=== PATIENT | male | born 1960 | race Caucasian/White ===

== ENCOUNTER 2020-06-19 18:16 | Inpatient (IN) | payer MEDICARE, MEDICAID ==
[~2020-06-19] VITALS: Ht 157.5 cm; Wt 85.7 kg
[~2020-06-19 18:16] MED LIST: AMBIEN10 MG PO; ASPIR 8181 MG ORAL; ATIVAN2 MG/1 ML IJ; DILAUDID 44 MG/1 ML IJ; DILAUDID8 MG PO; HUMALOG100 UNIT/1 SQ; KLONOPIN1 MG ORAL; LAMICTAL ODT100 MG PO; LEVEMIR100 UNIT/1 SQ; LEVEMIR100 UNITS/ *; LEVEMIR100 UNITS/ SUBQ; LOPID600 MG PO; LORAZEPAM2 MG PO; LYRICA100 MG PO; NEURONTIN400 MG ORAL; SEROQUEL400 MG PO; ZOCOR20 MG PO
[2020-06-19] MEDS ORDERED: Aspirin Baby 81mg ORAL ONE (18:30)
--- NOTE | 2020-06-19 18:30 | NUR ---
ED Nurse Note: Pt SHARRON from [facility] for chest pain since this morning 0800. CP on L chest radiating to L shoulder. Pt is alert and orientedx4, ambulatory. Pt is alert and ox4, ambulatory. Set up on monitor. Pt has been seen by LUI.
[2020-06-19 18:33] VITALS: BP 137/75
[2020-06-19 18:56] LABS: BASOPHILS % (AUTO) 1.1 % (0.0-2.0); EOSINOPHILS % (AUTO) 2.7 % (0.0-3.0); HEMATOCRIT 33.9 % (42.0-52.0); HEMOGLOBIN 11.9 G/DL (14.2-18.0); LYMPHOCYTES % (AUTO) 32.1 % (20.0-45.0); MEAN CORPUSCULAR VOLUME 94 FL (80-99); MONOCYTES % (AUTO) 10.5 % (1.0-10.0); NEUTROPHILS % (AUTO) 53.7 % (45.0-75.0); PLATELET COUNT 241 K/UL (150-450); RED BLOOD COUNT 3.62 M/UL (4.70-6.10); RED CELL DISTRIBUTION WIDTH 11.2 % (11.6-14.8); WHITE BLOOD COUNT 5.8 K/UL (4.8-10.8)
[2020-06-19 19:06] LABS: ANION GAP 10 mmol/L (5-15); BLOOD UREA NITROGEN 22 mg/dL (7-18); CARBON DIOXIDE 25 MMOL/L (21-32); CHLORIDE 104 MMOL/L (98-107); CREATININE 0.9 MG/DL (0.55-1.30); POTASSIUM 3.9 MMOL/L (3.5-5.1); SODIUM 139 MMOL/L (136-145)
--- NOTE | 2020-06-19 19:10 | NUR ---
ED Nurse Note: Report received from DAVID Chavez. Patient is awake and alert, resting in bed. 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 No acute distress at this time. Patient is aware of hospital admission. Will continue to monitor.
[2020-06-19 19:11] LABS: ALANINE AMINOTRANSFERASE 24 U/L (12-78); ALBUMIN 3.8 G/DL (3.4-5.0); ALBUMIN/GLOBULIN RATIO 1.2 (1.0-2.7); ALKALINE PHOSPHATASE 60 U/L (46-116); ASPARTATE AMINO TRANSFERASE 22 U/L (15-37); BILIRUBIN,TOTAL 0.3 MG/DL (0.2-1.0)
--- NOTE | 2020-06-19 20:26 | Emergency Room Report ---
History of Present Illness General Chief Complaint: Chest Pain Source: Patient Present Illness HPI 60-year-old male with history of CAD and hypertension here with left-sided chest pain and bilateral lower extremity swelling. Patient says that the left-sided chest pain is been ongoing for the past 24 hours and is worse on exertion. He says that he has been experiencing lower extremity swelling intermittently. Pain is pressure-like in nature, located solely in the left side of his chest, does not otherwise radiate. No fevers, chills, rotations, shortness of breath, cough, back pain, abdominal pain, nausea, vomiting, diarrhea, dysuria. 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 COVID-19 Screening: Negative COVID-19 COVID-19 Testing Source: [facility] unknown time Nursing Documentation-PMH Past Medical History: No History, Except For Hx Cardiac Problems: Yes - CAD Hx Hypertension: Yes Hx Pacemaker: No Hx Asthma: No Hx COPD: Yes Hx Diabetes: Yes Hx Cancer: No Hx Gastrointestinal Problems: No Hx Dialysis: No Hx Neurological Problems: No Hx Cerebrovascular Accident: No Hx Seizures: No Hx Peripheral Neuropathy: Yes Hx Neurologic Surgery: No Review of Systems All Other Systems: negative except mentioned in HPI Physical Exam Vital Signs Date Time Temp Pulse Resp B/P (MAP) Pulse Ox O2 Delivery O2 Flow Rate FiO2 06/19/20 18:06 98.4 70 20 141/72 (95) 97 Room Air 06/19/20 18:33 99 Sp02 EP Interpretation: reviewed, normal General Appearance: no apparent distress, alert, GCS 15, non-toxic Head: normocephalic, atraumatic Eyes: bilateral eye normal inspection, bilateral eye PERRL ENT: hearing grossly normal, normal pharynx, no angioedema, normal voice Neck: full range of motion, supple/symm/no masses Respiratory: chest non-tender, lungs clear, normal breath sounds, speaking full sentences Cardiovascular #1: regular rate, rhythm, no edema Cardiovascular #2: 2+ carotid (R), 2+ carotid (L), 2+ radial (R), 2+ radial (L), 2+ dorsalis pedis (R), 2+ dorsalis pedis (L) Gastrointestinal: normal bowel sounds, non tender, soft, non-distended, no guarding, no rebound Rectal: deferred Genitourinary: normal inspection, no CVA tenderness Musculoskeletal: back normal, normal range of motion, gait/station normal, non- tender Neurologic: alert, motor strength/tone normal, oriented x3, sensory intact, res ponsive, speech normal Psychiatric: judgement/insight normal, memory normal, mood/affect normal, no suicidal/homicidal ideation Lymphatic: no adenopathy Medical Decision Making Diagnostic Impression: Primary Impression: Chest pain Additional Impressions: ACS (acute coronary syndrome) HTN (hypertension) ER Course EKG: NSR, no ischemia, intervals WNL. No ectopy Rhythm strip: patient monitored for arrhythmias - no malignant dysrhythmias, runs of PVCs, nor pauses noted Chest x-ray: No infiltrate/effusion. Mediastinum within normal limits. Indication chest pain Laboratory Tests Test 06/19/20 18:25 White Blood Count 5.8 K/UL (4.8-10.8) Red Blood Count 3.62 M/UL (4.70-6.10) L Hemoglobin 11.9 G/DL (14.2-18.0) L Hematocrit 33.9 % (42.0-52.0) L Mean Corpuscular Volume 94 FL (80-99) Mean Corpuscular Hemoglobin 32.7 PG (27.0-31.0) H Mean Corpuscular Hemoglobin Concent 34.9 G/DL (32.0-36.0) Red Cell Distribution Width 11.2 % (11.6-14.8) L Platelet Count 241 K/UL (150-450) Mean Platelet Volume 8.2 FL (6.5-10.1) Neutrophils (%) (Auto) 53.7 % (45.0-75.0) Lymphocytes (%) (Auto) 32.1 % (20.0-45.0) Monocytes (%) (Auto) 10.5 % (1.0-10.0) H Eosinophils (%) (Auto) 2.7 % (0.0-3.0) Basophils (%) (Auto) 1.1 % (0.0-2.0) Sodium Level 139 MMOL/L (136-145) Potassium Level 3.9 MMOL/L (3.5-5.1) Chloride Level 104 MMOL/L (98-107) Carbon Dioxide Level 25 MMOL/L (21-32) Anion Gap 10 mmol/L (5-15) Blood Urea Nitrogen 22 mg/dL (7-18) H Creatinine 0.9 MG/DL (0.55-1.30) Estimated Glomerular Filtration Rate > 60 mL/min (>60) Glucose Level 129 MG/DL (74-106) H Calcium Level 9.0 MG/DL (8.5-10.1) Total Bilirubin 0.3 MG/DL (0.2-1.0) Aspartate Amino Transferase (AST) 22 U/L (15-37) Alanine Aminotransferase (ALT) 24 U/L (12-78) Alkaline Phosphatase 60 U/L (46-116) Troponin I 0.001 ng/mL (0.000-0.056) Total Protein 6.9 G/DL (6.4-8.2) Albumin 3.8 G/DL (3.4-5.0) Globulin 3.1 g/dL Albumin/Globulin Ratio 1.2 (1.0-2.7) 60-year-old male here with left-sided chest pain. Patient had a elevated heart score due to history, age, comorbidities. Was given aspirin on arrival to the emergency department. He was pain-free in the ER. Examination unremarkable, E KG normal, labs normal including a negative troponin. The patient will be admitted to telemetry for further work-up and observation. Last Vital Signs Date Time Temp Pulse Resp B/P (MAP) Pulse Ox O2 Delivery O2 Flow Rate FiO2 06/19/20 18:33 98.4 72 18 137/75 99 Room Air 06/19/20 18:33 99 Referrals: Arthur Cabrera MD (PCP) Jose Francisco Ruffin M.D. Jun 19, 2020 20:26
[2020-06-19] MEDS ORDERED: METOPROLOL TART50 M1 ORAL (20:56)
[2020-06-19] MEDS ORDERED: LISINOPRIL20 MG ORAL (20:56)
[2020-06-19] MEDS ORDERED: ATIVAN2 MG ORAL (20:56)
[2020-06-19] MEDS ORDERED: FLOMAX0.4 MG ORAL (20:56)
[2020-06-19] MEDS ORDERED: CRESTOR10 M2 ORAL (20:56)
[2020-06-19] MEDS ORDERED: ABILIFY10 MG ORAL (20:56)
--- NOTE | 2020-06-19 21:05 | NUR ---
ED Nurse Note: Report given to DAVID Mehta.
--- NOTE | 2020-06-19 21:15 | NUR ---
ED Nurse Note: Patient is stable for transfer to tele unit at this time. Patient is aaox4, breathing is normal at time of ED departure. Sylvia Addendum: 06/20/20 at 0330 by MALENA ED Nurse Note: Patient taken to unit via gurney while connected to cardiac cath technician. IV is patent and intact. Patient took all belongings with him. VSS.
[2020-06-19] MEDS: Nitroglycerin Subl 0.4mg tab SL PRN (23:45)
--- NOTE | 2020-06-20 | NUR ---
NURSE NOTES: Dr. Cabrrea gave admission orders. Noted and carried out.
[2020-06-20] MEDS: HYDROcodone/Acetamin 10/325 tab ORAL PRN ×2 (00:22→13:38)
[2020-06-20] MEDS: Albuterol/Ipratropium 3ml neb HHN SCH ×4 (00:58→19:52)
--- NOTE | 2020-06-20 01:04 | NUR ---
NURSE NOTES: Patient noted with 45 heart rate while asleep. Easily arousable and oriented x4. Heart rate goes up to 55 to 60s when awake. Chest pain also subsided to 2/10.
[2020-06-20] MEDS ORDERED: Zolpidem 5mg tab ORAL PRN (01:30)
--- NOTE | 2020-06-20 02:10 | NUR ---
NURSE NOTES: Report received from DAVID Tidwell in ER. Patient being admitted to [facility] for chest pain. Patient currently sinus more to sinus rhythm. C/o 04/28 chest pain. No SOB. Not tested for COVID because no S/s exhibited per ER nurse. ASA given in ER. Patient has $42 desai on him in his wallet, clothing and shoes, no cell pohone or medical devices. He is ambulatory and alert and oriented x4. Bed is at lowest position locked with side rails up. Call light and bedside table with in reach. Will continue to follow up with Dr. Cabrera for orders. Addendum: 06/20/20 at 0216 by Janine Rosenbaum RN Patient admitted at 11pm
[2020-06-20] MEDS: LORazepam 1mg tab ORAL PRN ×3 (03:04→17:11)
[2020-06-20 04:00] VITALS: BP 118/66
[2020-06-20] MEDS: NovoLOG Insulin Flexpen SUBQ SCH ×4 (06:38→21:00)
--- NOTE | 2020-06-20 07:30 | NUR ---
NURSE NOTES: Pt received from Anya HERNANDEZ. pt in bed alert and talkative. Asking for water. Pt complains of some weakness in left foot. Educated on using call light and to NOT walk to restroom alone. Will bring in camode. Call light within reach. Bed low and locked for safety although he can walk just has slightly unsteady gait. No omplaint of pain at this time.
--- NOTE | 2020-06-20 07:46 | NUR ---
NURSE HAND-OFF REPORT: Important Events on Shift:[Admitted to tele. Patient had SB to SR 47 to 70. SB while asleep but easily arousable. ] Patient Status: [Alert and oriented x4 ] Diet: [1800 Calorie CCHO ADA] Pending Orders: [] Pending Results/Labs:[] Pending MD notification:[Ambien 10mg] Latest Vital Signs: Temperature 97.2 , Pulse 56 , B/P 118 /66 , Respiratory Rate 19 , O2 SAT 97 , Room Air, O2 Flow Rate . Vital Sign Comment: [] EKG Rhythm: Sinus Bradycardia Rhythm change?: N MD Notified?: - MD Response: Latest Del Angel Fall Score: 15 Fall Risk: Low Risk Safety Measures: Call light , Bed Alarm , Side Rails Side Rails x2, Bed position Low and Locked. Fall Precautions: Report given to [DAVID Richardson].
[2020-06-20 08:00] VITALS: BP 128/72
[2020-06-20] MEDS: ARIPiprazole 10mg tab ORAL SCH (08:26)
[2020-06-20] MEDS: Aspirin EC 81mg tab ORAL SCH (08:26)
[2020-06-20] MEDS: Lisinopril 20mg tab ORAL SCH (08:27)
[2020-06-20] MEDS: Tamsulosin 0.4mg cap ORAL SCH (08:27)
[2020-06-20] MEDS: Levemir Flexpen SUBQ SCH ×2 (08:29→21:21)
[2020-06-20] MEDS: Metoprolol Tartrate 50mg tab ORAL SCH ×2 (08:29→21:11)
[2020-06-20] MEDS: Nitroglycerin Subl 0.4mg tab SL PRN ×3 (08:47→09:12)
--- NOTE | 2020-06-20 09:16 | NUR ---
NURSE NOTES: Nitro SL X3 was not affective. Contacted Dr. Garrido and reported this along with vitals. Per Dr. Garrido "I am in the building wait for me to come up""
--- NOTE | 2020-06-20 10:29 | NUR ---
NURSE NOTES: pt reporting severe anxiety and asking for ativan. Chest pain still at " 8 or 9 out of 10." Contacted Dr. Garrido to report this.
[2020-06-20] MEDS ORDERED: Omnipaque 350 100ml vial INJ PRN (10:45)
--- NOTE | 2020-06-20 11:32 | History and Physical ---
History of Present Illness General Date patient seen: Jun 20, 2020 Time patient seen: 11:00 Reason for Hospitalization: Chest Pain Present Illness HPI 60 years wm came from for chest pain ,sob, leg edema and interctable denice feet pain for 2 days. pt also feels unsteidy gait and loosing his balance pain level ob both feet 04/28 has been neurontin ,not helping. pt has mild cough and sob on exertion. Allergies: Coded Allergies: PHENOTHIAZINES (Verified Allergy, Unknown, 02/06/10) COVID-19 Screening Contact w/high risk pt: No Experienced COVID-19 symptoms?: No Medication History Scheduled Aripiprazole* (Abilify*), 10 MG ORAL DAILY, (Reported) Aspirin* (Aspir 81*), 81 MG ORAL DAILY, (Reported) Gabapentin* (Neurontin*), 900 MG ORAL THREE TIMES A DAY, (Reported) Gemfibrozil* (Lopid*), 600 MG PO BID, (Reported) Lamotrigine (Lamictal Odt), 100 MG PO HS, (Reported) Lisinopril (Lisinopril*), 20 MG ORAL DAILY, (Reported) Lorazepam* (Ativan*), 2 MG ORAL THREE TIMES A DAY, (Reported) Metoprolol Tartrate* (Metoprolol Tartrate*), 50 MG ORAL EVERY 12 HOURS, (Reported) Quetiapine Fumarate (Seroquel), 400 MG PO HS, (Reported) Rosuvastatin Calcium* (Crestor*), 10 MG ORAL DAILY, (Reported) Tamsulosin HCl (Flomax), 0.4 MG ORAL DAILY, (Reported) Discontinued Medications Clonazepam* (Klonopin*), 2 MG ORAL Q8H, (Reported) Discontinued Reason: MD discontinued med Hydromorphone Hcl (Dilaudid), 4 MG PO QID, (Reported) Discontinued Reason: MD discontinued med Insulin Detemir (Levemir), 16 UNITS * AM PM, (Reported) Discontinued Reason: MD discontinued med Insulin Lispro (Humalog), UNIT SQ AC+HS, (Reported) Discontinued Reason: MD discontinued med Pregabalin (Lyrica), 100 MG PO HS, (Reported) Discontinued Reason: MD discontinued med Simvastatin (Zocor), 20 MG PO QHS, (Reported) Discontinued Reason: MD discontinued med Zolpidem Tartrate* (Ambien*), 10 MG PO HS, (Reported) Discontinued Reason: MD discontinued med Patient History Healthcare decision maker Resuscitation status Advanced Directive on File Review of Systems Constitutional: Reports: sweats, weakness Respiratory: Reports: cough, wheezing Cardiovascular: Reports: chest pain, PND Gastrointestinal: Reports: no symptoms Genitourinary: Reports: no symptoms Musculoskeletal: Reports: muscle pain, other - denice feet pain Skin: Reports: no symptoms Psychiatric: Reports: anxiety Neurological: Reports: no symptoms Endocrine: Reports: no symptoms All Other Systems: negative except mentioned in HPI Physical Exam General Appearance: alert, obese, alert oriented x3 Lines, tubes and drains: peripheral HEENT: normocephalic, PERRL, EOMI, pharynx normal, carotid(s) normal Neck: normal alignment, supple Respiratory/Chest: inspiratory wheezing, other - chest tighhtness, old surgical scar on lt upper chest Cardiovascular/Chest: regular rhythm Abdomen: non tender, soft, no mass Genitourinary/Rectal: normal genital exam Extremities: normal range of motion, moderate edema - flat foot with dry skin Skin Exam: warm/dry 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, abnormal gait, oriented x 3 Musculoskeletal: normal muscle bulk Last 24 Hour Vital Signs Date Time Temp Pulse Resp B/P (MAP) Pulse Ox O2 Delivery O2 Flow Rate FiO2 06/20/20 10:53 62 18 136/65 97 06/20/20 09:12 128/72 06/20/20 08:57 128/72 06/20/20 08:47 128/72 06/20/20 08:29 75 128/72 06/20/20 08:27 128/72 06/20/20 08:00 80 06/20/20 08:00 99.5 74 18 128/72 (90) 97 06/20/20 07:58 71 18 100 Room Air 21 77 18 98 06/20/20 04:00 97.2 72 19 118/66 (83) 97 06/20/20 04:00 56 06/20/20 03:34 56 19 118/66 97 06/20/20 03:04 60 19 121/73 100 06/20/20 02:20 Room Air 06/20/20 01:00 77 16 100 Room Air 21 75 16 97 06/20/20 00:52 98.4 06/19/20 23:45 157/82 06/19/20 23:30 61 06/19/20 21:15 98.0 82 18 140/80 98 Room Air 99 06/19/20 18:33 98.4 72 18 137/75 99 Room Air 06/19/20 18:33 72 18 Room Air 99 06/19/20 18:06 98.4 70 20 141/72 (95) 97 Room Air Intake and Output 06/19/20 06/20/20 19:00 07:00 Intake Total 0 ml 300 ml Balance 0 ml 300 ml Intake Oral 0 ml 300 ml Laboratory Tests Test 06/19/20 18:25 06/19/20 21:49 06/20/20 05:30 White Blood Count 5.8 K/UL (4.8-10.8) Red Blood Count 3.62 M/UL (4.70-6.10) L Hemoglobin 11.9 G/DL (14.2-18.0) L Hematocrit 33.9 % (42.0-52.0) L Mean Corpuscular Volume 94 FL (80-99) Mean Corpuscular Hemoglobin 32.7 PG (27.0-31.0) H Mean Corpuscular Hemoglobin Concent 34.9 G/DL (32.0-36.0) Red Cell Distribution Width 11.2 % (11.6-14.8) L Platelet Count 241 K/UL (150-450) Mean Platelet Volume 8.2 FL (6.5-10.1) Neutrophils (%) (Auto) 53.7 % (45.0-75.0) Lymphocytes (%) (Auto) 32.1 % (20.0-45.0) Monocytes (%) (Auto) 10.5 % (1.0-10.0) H Eosinophils (%) (Auto) 2.7 % (0.0-3.0) Basophils (%) (Auto) 1.1 % (0.0-2.0) Sodium Level 139 MMOL/L (136-145) Potassium Level 3.9 MMOL/L (3.5-5.1) Chloride Level 104 MMOL/L (98-107) Carbon Dioxide Level 25 MMOL/L (21-32) Anion Gap 10 mmol/L (5-15) Blood Urea Nitrogen 22 mg/dL (7-18) H Creatinine 0.9 MG/DL (0.55-1.30) Estimat Glomerular Filtration Rate > 60 mL/min (>60) Glucose Level 129 MG/DL (74-106) H Calcium Level 9.0 MG/DL (8.5-10.1) Total Bilirubin 0.3 MG/DL (0.2-1.0) Aspartate Amino Transf (AST/SGOT) 22 U/L (15-37) Alanine Aminotransferase (ALT/SGPT) 24 U/L (12-78) Alkaline Phosphatase 60 U/L (46-116) Troponin I 0.001 ng/mL (0.000-0.056) 0.001 ng/mL (0.000-0.056) Total Protein 6.9 G/DL (6.4-8.2) Albumin 3.8 G/DL (3.4-5.0) Globulin 3.1 g/dL Albumin/Globulin Ratio 1.2 (1.0-2.7) POC Whole Blood Glucose Pending Height (Feet): 5 Height (Inches): 2.00 Weight (Pounds): 187 Medications Current Medications Medications (Trade) Dose Ordered Sig/Chris Route PRN Reason Start Time Stop Time Status Last Admin Dose Admin Acetaminophen (Tylenol) 650 mg Q4H PRN ORAL Mild Pain (Pain Scale 1-3) 06/19/20 23:15 07/19/20 23:14 Acetaminophen/ Hydrocodone Bitart ([place] 10/325) 1 tab EVERY 6 HOURS PRN ORAL Pain 06/19/20 23:00 06/26/20 22:59 06/20/20 00:22 Albuterol/ Ipratropium (Albuterol/ Ipratropium) 3 ml Q6HRT HHN 06/20/20 01:00 06/25/20 00:59 06/20/20 07:48 Aripiprazole (Abilify) 10 mg DAILY ORAL 06/20/20 09:00 08/04/20 08:59 06/20/20 08:26 Aspirin (Ecotrin) 81 mg DAILY ORAL 06/20/20 09:00 08/04/20 08:59 06/20/20 08:26 Atorvastatin Calcium (Lipitor) 20 mg BEDTIME ORAL 06/20/20 21:00 09/18/20 20:59 Dextrose (Dextrose 50%) 25 ml Q30M PRN IV Hypoglycemia 06/20/20 00:00 09/18/20 00:00 Dextrose (Dextrose 50%) 50 ml Q30M PRN IV Hypoglycemia 06/20/20 00:00 09/18/20 00:00 Gabapentin (Neurontin) 100 mg THREE TIMES A DAY ORAL 06/20/20 13:00 07/20/20 12:59 Gabapentin (Neurontin) 900 mg THREE TIMES A DAY ORAL 06/20/20 13:00 07/20/20 08:59 Gemfibrozil (Lopid) 600 mg BID ORAL 06/20/20 09:00 07/20/20 08:59 06/20/20 08:26 Insulin Aspart (NovoLOG) Humalog insulin BEFORE MEALS AND HS SUBQ 06/20/20 06:30 09/18/20 06:29 06/20/20 06:38 Insulin Detemir (Levemir) 14 units Q12HR SUBQ 06/20/20 09:00 09/18/20 08:59 06/20/20 08:29 Iohexol (Omnipaque 350 100ml) 100 ml NOW PRN INJ Radiology Procedure 06/20/20 10:45 06/22/20 10:44 Lamotrigine (LaMICtal) 100 mg BEDTIME ORAL 06/20/20 21:00 08/04/20 20:59 Lisinopril (PriniviL) 20 mg DAILY ORAL 06/20/20 09:00 07/20/20 08:59 06/20/20 08:27 Lorazepam (Ativan) 2 mg TID PRN ORAL ANXIETY 06/19/20 23:45 06/26/20 23:44 06/20/20 10:53 Metoprolol Tartrate (Lopressor) 50 mg EVERY 12 HOURS ORAL 06/20/20 09:00 09/18/20 08:59 06/20/20 08:29 Nitroglycerin (Ntg) 0.4 mg EVERY 6 HOURS PRN SL Prn Chest Pain 06/19/20 23:15 07/19/20 23:14 06/20/20 09:12 Pantoprazole (Protonix) 40 mg DAILY ORAL 06/20/20 09:00 07/20/20 08:59 06/20/20 08:27 Quetiapine Fumarate (SEROqueL) 400 mg BEDTIME ORAL 06/20/20 21:00 08/04/20 20:59 Tamsulosin HCl (Flomax) 0.4 mg DAILY ORAL 06/20/20 09:00 07/20/20 08:59 06/20/20 08:27 Zolpidem Tartrate (Ambien) 5 mg HSPRN PRN ORAL Insomnia 06/20/20 01:30 06/27/20 01:29 Assessment/Plan Status Narrative 1 acs 2 chf 3dm neuropathy 4 dm poorly controlled 5 comorbid obesity 6 intercatable pain denice feet 7 unstady gait 8 anxiety 9 depression admit to tele asa, beta bloker, acei , r/o mi cardio consult increased neurontin pt/ot cont 1800 ada diet, insulin, accue check Arthur Cabrera MD Jun 20, 2020 11:32
[2020-06-20] MEDS ORDERED: Isovue-300 100ml vial INJ PRN (11:45)
[2020-06-20 12:00] VITALS: BP 138/66
--- NOTE | 2020-06-20 13:42 | NUR ---
NURSE NOTES: PPt has gabbapenting and is asking for norco for 9/10 chest pain. Per pharmacy these two should be given 2 hours apart. Pt asks to have norco now. I will administer gabba in 2 hours
--- NOTE | 2020-06-20 15:11 | NUR ---
CASE MANAGEMENT: INITIAL REVIEW 60 YO M PRESENTED TO ED FROM [facility] CC: CP PMHx; HTN. COPD. DM. Si:CP R/O ACS VS: T 98.4 HR 70 RR 20 B/P 141/72 SATS 97% ON RA LABS: BUN 22 GLU 129 TROPONIN (-) X3 IS: ASA PO X1 PATIENT ADMITTED TO TELE 06/19/2020 @ 1926 DCP: B&C PLAN OF CARE: CARDIO CONSULT CONCURRENT REVIEW FOR 06/20/2020 SI:CP R/O ACS VS: T 98.2 HR 56 RR 20 B/P 138/66 SATS 98% ON RA LABS: GLU 159 IS:LOPRESSOR PO Q12H LAMICTAL PO QHS LIPITOR PO QHS LOPID PO BID ASA PO QD LISINOPRIL PO QD FLOMAX PO QD PROTONIX PO QD INSULIN ASPART SUBQ AC/HS LEVEMIR SUBQ Q12H TELE PLAN OF CARE: cardio consult increased Neurontin pt/ot cont 1800 ada diet, insulin, accu check
--- NOTE | 2020-06-20 15:24 | NUR ---
CASE MANAGEMENT: NOTE CP R/O ACS. ADMITTED INPT. TROPONIN (-) X3. CARDIO EVAL PENDING. MEETS OBS IN INTERQUAL MADE AWARE
[2020-06-20 16:00] VITALS: BP 124/53
[2020-06-20] MEDS ORDERED: TEMAZEPAM15 MG ORAL (17:05)
[2020-06-20] MEDS ORDERED: QUETIAPINE FUM300 MG ORAL (17:05)
[2020-06-20] MEDS ORDERED: ARIPIPRAZOLE OD10 MG PO (17:05)
--- NOTE | 2020-06-20 17:37 | Diagnostic Imaging Report ---
Indication: Headache and dizziness, history of chest pain Technique: Spiral acquisitions obtained through the brain pre- and post-IV contrast administration. Angled axial and coronal 5 x 5 mm slices reconstructed. Total dose length product 2144 mGycm. CTDIvol(s) 53 and 53 mGy. Dose reduction achieved using automated exposure control Comparison: 04/24/2011 noncontrast study Findings: No acute intracranial hemorrhage or edema, mass effect, nor midline shift. There is mild age-related enlargement of the ventricles and extra axial CSF spaces. Normal willett-white differentiation. Visualized orbits and sinuses are unremarkable. Mastoids are clear. Calvarium is intact. No significant change. Postcontrast images demonstrate no unusual contrast enhancement Impression: Negative The CT scanner at [facility] is accredited by the [employer] and the scans are performed using protocols designed to limit radiation exposure to as low as reasonably achievable to attain images of sufficient resolution adequate for diagnostic evaluation.
--- NOTE | 2020-06-20 18:27 | Diagnostic Imaging Report ---
Indication: Reason For Exam: CP Technique: One view of the chest Comparison: 05/27/2020 Findings: Lungs and pleural spaces are clear. Heart size is upper limits normal. No significant change Impression: No acute process
--- NOTE | 2020-06-20 19:10 | NUR ---
NURSE HAND-OFF REPORT: Important Events on Shift: Pt became anxious,threatened to leave AMA. Chest pain that did not resolve with Nitro SL x3. CT of head done. Per pharmacy give 6pm gabbapentin at 8 because 13:00 was given late. Patient Status: Diet: Pending Orders: Pending Results/Labs: Pending MD notification: Latest Vital Signs: Temperature 99.1 , Pulse 73 , B/P 124 /53 , Respiratory Rate 17 , O2 SAT 98 , Room Air, O2 Flow Rate . Vital Sign Comment: EKG Rhythm: Sinus Bradycardia Rhythm change?: N MD Notified?: - MD Response: Latest Del Angel Fall Score: 25 Fall Risk: Medium Risk Safety Measures: Call light Within Reach, Bed Alarm Zone 2, Side Rails Side Rails x2, Bed position Low and Locked. Fall Precautions: Patient Fall Education Report given to .
--- NOTE | 2020-06-20 19:25 | NUR ---
NURSE NOTES: Report given by DAVID Richardson. Patient awake alert and oriented x4. No SOB or acute distress. Call light and bedside table within reach. Bed at lowest position and locked with side rails up. Will continue with plan of care.
--- NOTE | 2020-06-20 19:56 | Cardiology Progress Note ---
Assessment/Plan Assessment/Plan The patient is seen and examined, full consult note is dictated. Objective Last 24 Hour Vital Signs Date Time Temp Pulse Resp B/P (MAP) Pulse Ox O2 Delivery O2 Flow Rate FiO2 06/20/20 19:53 68 17 100 Room Air 21 65 17 98 06/20/20 17:41 73 17 124/53 98 06/20/20 17:11 69 18 124/53 97 06/20/20 16:00 51 06/20/20 16:00 99.1 69 18 124/53 (76) 97 06/20/20 14:08 98.2 06/20/20 14:02 68 18 100 Room Air 21 66 18 98 06/20/20 12:00 98.2 56 20 138/66 (90) 98 06/20/20 12:00 48 06/20/20 11:23 58 18 136/65 97 06/20/20 10:53 62 18 136/65 97 06/20/20 09:12 128/72 06/20/20 09:00 Room Air 06/20/20 08:57 128/72 06/20/20 08:47 128/72 06/20/20 08:29 75 128/72 06/20/20 08:27 128/72 06/20/20 08:00 80 06/20/20 08:00 99.5 74 18 128/72 (90) 97 06/20/20 07:58 71 18 100 Room Air 21 77 18 98 06/20/20 04:00 97.2 72 19 118/66 (83) 97 06/20/20 04:00 56 06/20/20 03:34 56 19 118/66 97 06/20/20 03:04 60 19 121/73 100 06/20/20 02:20 Room Air 06/20/20 01:00 77 16 100 Room Air 21 75 16 97 06/20/20 00:52 98.4 06/19/20 23:45 157/82 06/19/20 23:30 61 06/19/20 21:15 98.0 82 18 140/80 98 Room Air 99 Intake and Output 06/19/20 06/20/20 19:00 07:00 Intake Total 0 ml 300 ml Balance 0 ml 300 ml Intake Oral 0 ml 300 ml Laboratory Tests Test 06/19/20 21:49 06/20/20 05:30 06/20/20 06:26 06/20/20 13:25 POC Whole Blood Glucose Pending 159 MG/DL (74-106) H Troponin I 0.001 ng/mL (0.000-0.056) 0.000 ng/mL (0.000-0.056) Remigio Garrido MD Jun 20, 2020 19:56
[2020-06-20 20:00] VITALS: BP 122/62
[2020-06-20] MEDS: Atorvastatin 20mg tab ORAL SCH (21:07)
[2020-06-20] MEDS: QUEtiapine 200mg tab ORAL SCH (21:11)
--- NOTE | 2020-06-20 23:30 | Consultation ---
DATE OF CONSULTATION: 06/20/2020 CARDIOLOGY CONSULTATION CONSULTING PHYSICIAN: Remigio Garrido MD. REFERRING PHYSICIAN: Arthur Cabrera MD. REASON FOR CONSULTATION: Management of chest pain. HISTORY OF PRESENT ILLNESS: Patient is a very unfortunate 60-year-old gentleman who presented to the hospital with left-sided chest pain and bilateral lower extremity edema. Chest pain is described as pressure like that has been more noticeable with exertion and been going on for the past 24 hours. The pain is not radiating, not alleviating with any modalities, and no exacerbation with movement or deep breath. The patient did not have any fever or chills or shortness of breath at the time of arrival to the hospital. Blood pressure was 141/72 mmHg and heart rate was 70. In the emergency department, the patient had blood tests, which showed troponin I level negative x2. Also brain natriuretic peptide was within normal limits. A 12-lead electrocardiogram showed sinus bradycardia rate of [address] and T-wave abnormalities. Chest x-ray showed no acute cardiopulmonary disease with normal cardiac silhouette. The patient has had multiple hospitalizations to [facility] [place] and has complete workup of CAD in the past including nuclear stress test. At the time of my physical examination and history taking, the patient did not have any chest pain. He was concerned about the CT of head. According to the nurse, the patient has been seeking narcotics. PAST MEDICAL HISTORY: Hypertension, COPD, diabetes mellitus, neuropathy. ALLERGIES: Phenothiazine. SOCIAL HISTORY: Continues to smoke about 10 cigarettes per day. No alcohol or illicit drug use. FAMILY HISTORY: No premature coronary artery disease in first-degree relatives. REVIEW OF SYSTEMS: HEENT: Denies any headache, diplopia, or blurred vision. CONSTITUTIONAL: Denies any fever, chills, night sweats, or weight loss. CARDIOVASCULAR: Chest pain as mentioned above. Denies any shortness of breath, denies any PND, orthopnea. Positive for leg swelling. Denies any syncope or palpitation. PULMONARY: Denies any cough, hemoptysis, or wheezing. GASTROINTESTINAL: Denies any nausea, vomiting, diarrhea, constipation, abdominal pain, or GI bleed. GENITOURINARY: Denies any hematuria, dysuria, or incontinence. NEUROLOGIC: Denies any motor dysfunction, sensory deficit, or altered speech. LIST OF MEDICATIONS: Seroquel 400 mg 1 tablet p.o. daily, insulin lispro, insulin detemir, gemfibrozil 600 mg twice a day, Lamictal 100 mg daily, Abilify 10 mg p.o. daily, clonazepam 2 mg q.8h, hydromorphone 4 mg 4 times a day, simvastatin 20 mg p.o. at bedtime, Lyrica 100 mg at bedtime, zolpidem 10 mg p.o. at bedtime, temazepam 15 mg at bedtime, aripiprazole 10 mg at bedtime, Seroquel 600 mg at bedtime, lisinopril 20 mg daily, lorazepam 2 mg 3 times a day, tamsulosin 0.4 mg daily, Crestor 5 mg p.o. daily, metoprolol 50 mg q.12h., gabapentin 300 mg 3 times a day, and aspirin 81 mg daily. PHYSICAL EXAMINATION: VITAL SIGNS: Blood pressure was 141/72, respirations 20, pulse of 70, temperature 98.4 degrees Fahrenheit, O2 saturation 97% on room air. GENERAL: Patient is a very pleasant 60-year-old gentleman, in no apparent respiratory distress. Alert and oriented x4. HEENT: Atraumatic and normocephalic. Anicteric. Pupils are equal, round, and reactive to light and accommodation. Extraocular movements intact. NECK: JVP less than 5 cm. No carotid bruit. Carotid upstroke is 2+ bilaterally. CARDIOVASCULAR: Normal S1, S2. Regular rate and rhythm. No murmurs, gallops, or rubs. PMI is at fourth intercostal space in the midclavicular line. LUNGS: Clear to auscultation bilaterally. ABDOMEN: Soft, nontender, nondistended. No hepatosplenomegaly. Positive bowel sounds. EXTREMITIES: No evidence of edema, clubbing, or cyanosis. LABORATORY FINDINGS: WBC 5.8, hemoglobin of 11.9, hematocrit of 33.9%, platelet count 241. Sodium 139, potassium 3.9, chloride 104, bicarbonate 25, BUN 22, creatinine 0.9, calcium is 9.0, glucose is 129. Troponin I x3 negative. Chest x-ray, no acute cardiopulmonary disease. ASSESSMENT AND PLAN: Patient is a very unfortunate 60-year-old gentleman seen in Cardiology consultation. 1. Most likely noncardiac chest pain given the factors of pain being constant, no evidence of ischemia on the EKG. Acute myocardial infarction is ruled out. The patient has had extensive ischemic workup at [facility] [place] in the past few months. At this time, no further cardiovascular intervention is required. Continue the patient on aspirin and statin as well as beta-blockers. 2D echocardiography, however, will be done to assess LV systolic and diastolic function. 2. Extensive psychiatric disorder. 3. Diabetes mellitus. 4. Hypertension. We will continue the patient on metoprolol and lisinopril. I would like to thank Dr. Cabrera for the courtesy of this consultation. Remigio Garrido M.D. DR: PRICILLA JOB#: [id number] CC:
[2020-06-21] VITALS: BP 125/63
[2020-06-21] MEDS: Albuterol/Ipratropium 3ml neb HHN SCH ×4 (01:00→19:48)
[2020-06-21 04:00] VITALS: BP 122/67
[2020-06-21] MEDS: NovoLOG Insulin Flexpen SUBQ SCH ×4 (06:23→21:22)
[2020-06-21] MEDS: HYDROcodone/Acetamin 10/325 tab ORAL PRN ×2 (06:23→13:33)
[2020-06-21 08:00] VITALS: BP 156/71
--- NOTE | 2020-06-21 08:07 | NUR ---
NURSE HAND-OFF REPORT: Important Events on Shift:[] Patient Status: [] Diet: [] Pending Orders: [] Pending Results/Labs:[] Pending MD notification:[] Latest Vital Signs: Temperature 97.8 , Pulse 53 , B/P 122 /67 , Respiratory Rate 19 , O2 SAT 98 , Room Air, O2 Flow Rate . Vital Sign Comment: [] EKG Rhythm: Sinus Bradycardia Rhythm change?: N MD Notified?: - MD Response: Latest Del Angel Fall Score: 25 Fall Risk: Medium Risk Safety Measures: Call light Within Reach, Bed Alarm Zone 2, Side Rails Side Rails x2, Bed position Low and Locked. Fall Precautions: Patient Fall Education Report given to [Pham, RN].
--- NOTE | 2020-06-21 08:08 | NUR ---
NURSE NOTES: Received patient awake, ambulating in the room. No SOB or acute distress. IV line intact. Bed locked in low position. Call light within reach. Will continue plan of care.
[2020-06-21] MEDS: LORazepam 1mg tab ORAL PRN ×2 (08:18→16:39)
[2020-06-21] MEDS: Aspirin EC 81mg tab ORAL SCH (09:00)
[2020-06-21] MEDS: ARIPiprazole 10mg tab ORAL SCH (09:00)
[2020-06-21] MEDS: Tamsulosin 0.4mg cap ORAL SCH (09:01)
[2020-06-21] MEDS: Lisinopril 20mg tab ORAL SCH (09:01)
[2020-06-21] MEDS: Metoprolol Tartrate 50mg tab ORAL SCH ×2 (09:01→20:59)
[2020-06-21] MEDS: Levemir Flexpen SUBQ SCH ×2 (09:02→21:21)
[2020-06-21 12:00] VITALS: BP 147/67
[2020-06-21] MEDS ORDERED: Omnipaque 350 100ml vial INJ PRN (13:15)
--- NOTE | 2020-06-21 13:22 | NUR ---
NURSE NOTES: Patient refusing to transfer to [facility], Dr Cabrera aware and seen patient.
--- NOTE | 2020-06-21 13:28 | General Progress Note ---
Subjective Allergies: Coded Allergies: PHENOTHIAZINES (Verified Allergy, Unknown, 02/06/10) Subjective anxious agitated, co chest tightness dizziness Objective Last 24 Hour Vital Signs Date Time Temp Pulse Resp B/P (MAP) Pulse Ox O2 Delivery O2 Flow Rate FiO2 06/21/20 12:00 98.1 67 18 147/67 (93) 95 06/21/20 09:01 53 122/67 06/21/20 09:01 122/67 06/21/20 09:00 Room Air 06/21/20 08:48 88 18 156/71 97 06/21/20 08:18 53 19 122/67 98 06/21/20 08:00 97.9 88 18 156/71 (99) 97 06/21/20 07:06 97.8 06/21/20 04:00 53 06/21/20 04:00 97.8 58 19 122/67 (85) 98 06/21/20 00:00 97.6 70 18 125/63 (83) 97 06/21/20 00:00 56 06/20/20 21:11 61 134/80 06/20/20 21:00 Room Air 06/20/20 20:00 47 06/20/20 20:00 97.5 62 17 122/62 (82) 97 06/20/20 19:53 68 17 100 Room Air 21 65 17 98 06/20/20 17:41 73 17 124/53 98 06/20/20 17:11 69 18 124/53 97 06/20/20 16:00 51 06/20/20 16:00 99.1 69 18 124/53 (76) 97 06/20/20 14:08 98.2 06/20/20 14:02 68 18 100 Room Air 21 66 18 98 Intake and Output 06/20/20 06/21/20 19:00 07:00 Intake Total 600 ml 600 ml Balance 600 ml 600 ml Intake Oral 600 ml 600 ml # Voids 3 Laboratory Tests 06/20/20 21:10: POC Whole Blood Glucose [Pending] 06/21/20 05:02: POC Whole Blood Glucose [Pending] 06/21/20 11:56: POC Whole Blood Glucose [Pending] Height (Feet): 5 Height (Inches): 2.00 Weight (Pounds): 187 General Appearance: agitated, overweight, alert oriented x3 EENT: PERRL/EOMI, normal ENT inspection Neck: supple Cardiovascular: regular rhythm Respiratory/Chest: normal breath sounds Abdomen: non tender, soft Extremities: non-tender Edema: trace edema 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
--- NOTE | 2020-06-21 13:31 | General Progress Note ---
Subjective Allergies: Coded Allergies: PHENOTHIAZINES (Verified Allergy, Unknown, 02/06/10) Subjective anxious agitated, co chest tightness dizziness Objective Last 24 Hour Vital Signs Date Time Temp Pulse Resp B/P (MAP) Pulse Ox O2 Delivery O2 Flow Rate FiO2 06/21/20 12:00 98.1 67 18 147/67 (93) 95 06/21/20 09:01 53 122/67 06/21/20 09:01 122/67 06/21/20 09:00 Room Air 06/21/20 08:48 88 18 156/71 97 06/21/20 08:18 53 19 122/67 98 06/21/20 08:00 97.9 88 18 156/71 (99) 97 06/21/20 07:06 97.8 06/21/20 04:00 53 06/21/20 04:00 97.8 58 19 122/67 (85) 98 06/21/20 00:00 97.6 70 18 125/63 (83) 97 06/21/20 00:00 56 06/20/20 21:11 61 134/80 06/20/20 21:00 Room Air 06/20/20 20:00 47 06/20/20 20:00 97.5 62 17 122/62 (82) 97 06/20/20 19:53 68 17 100 Room Air 21 65 17 98 06/20/20 17:41 73 17 124/53 98 06/20/20 17:11 69 18 124/53 97 06/20/20 16:00 51 06/20/20 16:00 99.1 69 18 124/53 (76) 97 06/20/20 14:08 98.2 06/20/20 14:02 68 18 100 Room Air 21 66 18 98 Intake and Output 06/20/20 06/21/20 19:00 07:00 Intake Total 600 ml 600 ml Balance 600 ml 600 ml Intake Oral 600 ml 600 ml # Voids 3 Laboratory Tests 06/20/20 21:10: POC Whole Blood Glucose [Pending] 06/21/20 05:02: POC Whole Blood Glucose [Pending] 06/21/20 11:56: POC Whole Blood Glucose [Pending] Height (Feet): 5 Height (Inches): 2.00 Weight (Pounds): 187 Assessment/Plan Status: other - anxiety refusing to c psych Assessment/Plan: recurrent chest pain chf dm dizziness dm neuropathy anxiety getting worse add ct of brain r/o cva cont medical tc rpt tropnin cardio on consult Arthur Cabrera MD Jun 21, 2020 13:31
--- NOTE | 2020-06-21 15:36 | NUR ---
PT Note PT sadia completed. Patient has a steady gait; no loss of balance noted. No further physical therapy needed at this time. Addendum: 06/21/20 at 1537 by DEX BECKER PT Amended: Links added.
[2020-06-21 16:00] VITALS: BP 136/56
--- NOTE | 2020-06-21 16:20 | NUR ---
NURSE NOTES: Patient transferred to [facility] [id number], report given to Phong HERNANDEZ. Belongings accounted for. No new skin issues noted. surveillance system monitor removed.
--- NOTE | 2020-06-21 16:23 | NUR ---
NURSE NOTES: Pham RN brought patient by bed in stable condition. Alert and oriented x4. No complain of pain or distress at this time. IV dressing intact and dry. Belonging checked with Pham RN. Bed lowest position. Call light within reach. Will continue to monitor.
--- NOTE | 2020-06-21 19:10 | NUR ---
NURSE NOTES: contacted RT to administer nebulizer treatment due 1900. RT came up and stated that they are still waiting on covid results. Once results are out RT will administer nebulizer treatment.
--- NOTE | 2020-06-21 19:24 | NUR ---
NURSE HAND-OFF: Important Events on Shift: Transfer from Tele Patient Status: Stable Diet: CCHO (M) Pending Orders: N/A Pending Results/Labs: CBC, CMP, Troponin on 06/22/20 Pending MD notification: N/A Latest Vital Signs: Temperature 98.7 , Pulse 63 , B/P 136 /56 , Respiratory Rate 19 , O2 SAT 99 , Room Air, O2 Flow Rate . Vital Sign Comment: Stable Latest Del Angel Fall Score: 25 Fall Risk: Medium Risk Safety Measures: Call light Within Reach, Bed Alarm Zone 2, Side Rails Side Rails x2, Bed position Low and Locked. Fall Precautions: Patient Fall Education Report given to Tyler HERNANDEZ. Patient in stable condition.
--- NOTE | 2020-06-21 19:30 | NUR ---
NURSE NOTES: received pt and report from DAVID Darling. pt alert and oriented x4 with no acute s/s of distress and no complaint of pain. IV site noted on left FA clean dry intact and saline locked. Plan of care discussed.
[2020-06-21 20:00] VITALS: BP 120/51
[2020-06-21] MEDS: QUEtiapine 200mg tab ORAL SCH (20:58)
[2020-06-21] MEDS: Atorvastatin 20mg tab ORAL SCH (20:58)
--- NOTE | 2020-06-21 21:00 | NUR ---
NURSE NOTES: messaged pharmacy regarding mistake of taking out 1 less tablet of seroquel. Spoke with Araceli from pharmacy and followed her instructions on how to take out dose needed. Pt given dose ordered. Araceli confirmed receiving the message i sent detailing the pyxis incident, the count verification of seroquel, the return of the one tablet taken out, and the override to take out the future dose which was administered to the patient.
--- NOTE | 2020-06-21 23:17 | NUR ---
NURSE NOTES: notified Dr. Cabrera of RT's reason for not administering dose of albuterol/ipratropium inhaler. upon discussing with charge nurse, Per protocol, patients must be covid negative in order to provide nebulizer treatment. currently patient is sleeping and in no acute distress. Will await Dr's order.
--- NOTE | 2020-06-21 23:20 | Cardiology Progress Note ---
Assessment/Plan Assessment/Plan 1. Noncardiac chest pain given the factors of pain being constant, no evidence of ischemia on the EKG. Acute myocardial infarction\ is ruled out. The patient has had extensive ischemic workup at [facility] [place] in the past. At this time, no further cardiovascular intervention is required. Continue aspirin and statin as well as beta-blockers. 2D echocardiography shows normal LVEF at 60% with RVSP at 26 mmHg and Grade I LV diastolic dysfunction. 2. Extensive psychiatric disorder. 3. Diabetes mellitus. 4. Hypertension, continue metoprolol and lisinopril. Subjective Subjective Transferred to the non-telemetry unit. Denies chest pain ant this time. Objective Last 24 Hour Vital Signs Date Time Temp Pulse Resp B/P (MAP) Pulse Ox O2 Delivery O2 Flow Rate FiO2 06/21/20 21:00 Room Air 06/21/20 20:59 65 120/51 06/21/20 20:00 98.1 65 17 120/51 (74) 96 06/21/20 17:09 63 19 136/56 99 06/21/20 16:39 63 19 136/56 99 06/21/20 16:00 98.7 63 19 136/56 (82) 99 06/21/20 13:22 68 17 100 Room Air 21 65 17 99 06/21/20 12:00 98.1 67 18 147/67 (93) 95 06/21/20 12:00 73 06/21/20 09:01 53 122/67 06/21/20 09:01 122/67 06/21/20 09:00 Room Air 06/21/20 08:48 88 18 156/71 97 06/21/20 08:18 53 19 122/67 98 06/21/20 08:00 97.9 88 18 156/71 (99) 97 06/21/20 08:00 85 06/21/20 07:06 97.8 06/21/20 04:00 53 06/21/20 04:00 97.8 58 19 122/67 (85) 98 06/21/20 00:00 97.6 70 18 125/63 (83) 97 06/21/20 00:00 56 Intake and Output 06/20/20 06/21/20 19:00 07:00 Intake Total 600 ml 600 ml Balance 600 ml 600 ml Intake Oral 600 ml 600 ml # Voids 3 2D Echo: LVEF 60%, Grade I LVDD, RVSP 26mmHg. Laboratory Tests Test 06/21/20 05:02 06/21/20 11:56 06/21/20 16:31 06/21/20 21:17 POC Whole Blood Glucose Pending Pending Pending 279 MG/DL (74-106) H Objective HEENT: Atraumatic and normocephalic. Anicteric. Pupils are equal, round, and reactive to light and accommodation. Extraocular movements intact. NECK: JVP less than 5 cm. No carotid bruit. Carotid upstroke is 2+ bilaterally. CARDIOVASCULAR: Normal S1, S2. Regular rate and rhythm. No murmurs, gallops, or rubs. PMI is at fourth intercostal space in the midclavicular line. LUNGS: Clear to auscultation bilaterally. ABDOMEN: Soft, nontender, nondistended. No hepatosplenomegaly. Positive bowel sounds. EXTREMITIES: No evidence of edema, clubbing, or cyanosis. Remigio Garrido MD Jun 21, 2020 23:20
[2020-06-22] VITALS: BP 105/55
--- NOTE | 2020-06-22 00:05 | NUR ---
patient woken up for vitals, easily arousable, alert and oriented x4 and in no acute distress. vital signs stable. pt denies shortness of breath or difficulty breathing. pt is currently sleeping.
[2020-06-22] MEDS: Albuterol/Ipratropium 3ml neb HHN SCH (01:56)
[2020-06-22 03:52] VITALS: BP 137/61
--- NOTE | 2020-06-22 03:53 | NUR ---
NURSE NOTES: pt vital signs stable. pt alert and oriented and in no acute distress and denies chest pain, sob, and difficulty breathing. Still awaiting Dr. Cabrera's orders regarding covid test, will follow up when orders come in.
[2020-06-22] MEDS: LORazepam 1mg tab ORAL PRN ×2 (05:10→15:55)
[2020-06-22 05:50] LABS: BASOPHILS % (AUTO) 1.2 % (0.0-2.0); EOSINOPHILS % (AUTO) 4.2 % (0.0-3.0); HEMOGLOBIN 11.7 G/DL (14.2-18.0); LYMPHOCYTES % (AUTO) 37.2 % (20.0-45.0); MEAN CORPUSCULAR VOLUME 89 FL (80-99); MONOCYTES % (AUTO) 13.7 % (1.0-10.0); NEUTROPHILS % (AUTO) 43.8 % (45.0-75.0); PLATELET COUNT 212 K/UL (150-450); RED BLOOD COUNT 3.58 M/UL (4.70-6.10); WHITE BLOOD COUNT 4.1 K/UL (4.8-10.8)
[2020-06-22 06:13] LABS: ALANINE AMINOTRANSFERASE 21 U/L (12-78); ALBUMIN 3.4 G/DL (3.4-5.0); ALBUMIN/GLOBULIN RATIO 1.1 (1.0-2.7); ALKALINE PHOSPHATASE 56 U/L (46-116); ANION GAP 7 mmol/L (5-15); ASPARTATE AMINO TRANSFERASE 17 U/L (15-37); BILIRUBIN,TOTAL 0.3 MG/DL (0.2-1.0); BLOOD UREA NITROGEN 21 mg/dL (7-18); CALCIUM 8.5 MG/DL (8.5-10.1); CARBON DIOXIDE 25 MMOL/L (21-32); CHLORIDE 106 MMOL/L (98-107); POTASSIUM 4.4 MMOL/L (3.5-5.1); SODIUM 138 MMOL/L (136-145)
[2020-06-22] MEDS: NovoLOG Insulin Flexpen SUBQ SCH ×4 (06:30→20:42)
[2020-06-22] MEDS: HYDROcodone/Acetamin 10/325 tab ORAL PRN ×3 (06:52→19:58)
--- NOTE | 2020-06-22 07:58 | NUR ---
NURSE NOTES: Received report from Tyler RN, rounds made pt awake having break fast, breaths regular unlabored n RA.denies any pain at this time . pt has a LT AC 20G locked , bed in low locked position, side rails upX2, call light within reach , will continue to monitor
[2020-06-22 08:00] VITALS: BP 147/65
[2020-06-22] MEDS: Tamsulosin 0.4mg cap ORAL SCH (08:56)
[2020-06-22] MEDS: ARIPiprazole 10mg tab ORAL SCH (08:57)
[2020-06-22] MEDS: Aspirin EC 81mg tab ORAL SCH (08:57)
[2020-06-22] MEDS: Metoprolol Tartrate 50mg tab ORAL SCH ×2 (08:57→20:40)
[2020-06-22] MEDS: Lisinopril 20mg tab ORAL SCH (08:57)
[2020-06-22] MEDS: Levemir Flexpen SUBQ SCH ×2 (08:59→20:41)
[2020-06-22 11:45] VITALS: BP 138/67
--- NOTE | 2020-06-22 13:37 | General Progress Note ---
Subjective Date patient seen: Jun 22, 2020 Time patient seen: 01:00 Allergies: Coded Allergies: PHENOTHIAZINES (Verified Allergy, Unknown, 02/06/10) Subjective anxious agitated, co chest tightness dizziness Objective Last 24 Hour Vital Signs Date Time Temp Pulse Resp B/P (MAP) Pulse Ox O2 Delivery O2 Flow Rate FiO2 06/22/20 11:45 98.1 65 18 138/67 (90) 100 06/22/20 09:00 Room Air 06/22/20 08:57 72 147/65 06/22/20 08:57 147/65 06/22/20 08:00 98.2 72 18 147/65 (92) 99 06/22/20 05:40 61 16 137/61 97 06/22/20 05:10 61 16 137/61 97 06/22/20 03:52 98.2 61 16 137/61 (86) 97 06/22/20 00:00 98.1 62 16 105/55 (72) 95 06/21/20 21:00 Room Air 06/21/20 20:59 65 120/51 06/21/20 20:00 98.1 65 17 120/51 (74) 96 06/21/20 17:09 63 19 136/56 99 06/21/20 16:39 63 19 136/56 99 06/21/20 16:00 98.7 63 19 136/56 (82) 99 Intake and Output 06/21/20 06/22/20 18:59 06:59 Intake Total 1580 ml 300 ml Balance 1580 ml 300 ml Intake Oral 1580 ml 300 ml # Voids 4 2 Laboratory Tests 06/21/20 16:31: POC Whole Blood Glucose [Pending] 06/21/20 21:17: POC Whole Blood Glucose 279H 06/22/20 04:45: White Blood Count 4.1L, Red Blood Count 3.58L, Hemoglobin 11.7L, Hematocrit 32.0L, Mean Corpuscular Volume 89, Mean Corpuscular Hemoglobin 32.7H, Mean Corpuscular Hemoglobin Concent 36.6H, Red Cell Distribution Width 11.0L, Platelet Count 212, Mean Platelet Volume 7.5, Neutrophils (%) (Auto) 43.8L, Lymphocytes (%) (Auto) 37.2, Monocytes (%) (Auto) 13.7H, Eosinophils (%) (Auto) 4.2H, Basophils (%) (Auto) 1.2, Sodium Level 138, Potassium Level 4.4, Chloride Level 106, Carbon Dioxide Level 25, Anion Gap 7, Blood Urea Nitrogen 21H, Creatinine 1.0, Estimat Glomerular Filtration Rate > 60, Glucose Level 128H, Calcium Level 8.5, Total Bilirubin 0.3, Aspartate Amino Transf (AST/SGOT) 17, Alanine Aminotransferase (ALT/SGPT) 21, Alkaline Phosphatase 56, Troponin I 0.004, Total Protein 6.4, Albumin 3.4, Globulin 3.0, Albumin/Globulin Ratio 1.1 06/22/20 06:32: POC Whole Blood Glucose 126H 06/22/20 08:55: POC Whole Blood Glucose [Pending] 06/22/20 11:33: POC Whole Blood Glucose 186H Height (Feet): 5 Height (Inches): 2.00 Weight (Pounds): 187 General Appearance: no apparent distress EENT: PERRL/EOMI Neck: supple Cardiovascular: regular rhythm Respiratory/Chest: normal breath sounds Abdomen: non tender, soft Extremities: non-tender, other - flat foot Assessment/Plan Status: other - anxiety refusing to c psych Assessment/Plan: recurrent chest pain chf dm dizziness dm neuropathy anxiety getting worse add ct of brain r/o cva cont medical tc rpt tropnin cardio on consult Arthur Cabrera MD Jun 22, 2020 13:37
--- NOTE | 2020-06-22 13:39 | General Progress Note ---
Subjective Allergies: Coded Allergies: PHENOTHIAZINES (Verified Allergy, Unknown, 02/06/10) Subjective anxious agitated, co chest tightness Objective Last 24 Hour Vital Signs Date Time Temp Pulse Resp B/P (MAP) Pulse Ox O2 Delivery O2 Flow Rate FiO2 06/22/20 11:45 98.1 65 18 138/67 (90) 100 06/22/20 09:00 Room Air 06/22/20 08:57 72 147/65 06/22/20 08:57 147/65 06/22/20 08:00 98.2 72 18 147/65 (92) 99 06/22/20 05:40 61 16 137/61 97 06/22/20 05:10 61 16 137/61 97 06/22/20 03:52 98.2 61 16 137/61 (86) 97 06/22/20 00:00 98.1 62 16 105/55 (72) 95 06/21/20 21:00 Room Air 06/21/20 20:59 65 120/51 06/21/20 20:00 98.1 65 17 120/51 (74) 96 06/21/20 17:09 63 19 136/56 99 06/21/20 16:39 63 19 136/56 99 06/21/20 16:00 98.7 63 19 136/56 (82) 99 Intake and Output 06/21/20 06/22/20 18:59 06:59 Intake Total 1580 ml 300 ml Balance 1580 ml 300 ml Intake Oral 1580 ml 300 ml # Voids 4 2 Laboratory Tests 06/21/20 16:31: POC Whole Blood Glucose [Pending] 06/21/20 21:17: POC Whole Blood Glucose 279H 06/22/20 04:45: White Blood Count 4.1L, Red Blood Count 3.58L, Hemoglobin 11.7L, Hematocrit 32.0L, Mean Corpuscular Volume 89, Mean Corpuscular Hemoglobin 32.7H, Mean Corpuscular Hemoglobin Concent 36.6H, Red Cell Distribution Width 11.0L, Pl atelet Count 212, Mean Platelet Volume 7.5, Neutrophils (%) (Auto) 43.8L, Lymphocytes (%) (Auto) 37.2, Monocytes (%) (Auto) 13.7H, Eosinophils (%) (Auto) 4.2H, Basophils (%) (Auto) 1.2, Sodium Level 138, Potassium Level 4.4, Chloride Level 106, Carbon Dioxide Level 25, Anion Gap 7, Blood Urea Nitrogen 21H, Creatinine 1.0, Estimat Glomerular Filtration Rate > 60, Glucose Level 128H, Calcium Level 8.5, Total Bilirubin 0.3, Aspartate Amino Transf (AST/SGOT) 17, Alanine Aminotransferase (ALT/SGPT) 21, Alkaline Phosphatase 56, Troponin I 0.004, Total Protein 6.4, Albumin 3.4, Globulin 3.0, Albumin/Globulin Ratio 1.1 06/22/20 06:32: POC Whole Blood Glucose 126H 06/22/20 08:55: POC Whole Blood Glucose [Pending] 06/22/20 11:33: POC Whole Blood Glucose 186H Height (Feet): 5 Height (Inches): 2.00 Weight (Pounds): 187 Assessment/Plan Status: other - anxiety refusing to c psych Assessment/Plan: recurrent chest pain chf dm dizziness dm neuropathy anxiety getting worse flat foot thomas as out pt add ct of brain r/o cva ct brain is negative cont medical tc rpt tropnin cardio on consult [id number] Arthur Cabrera MD Jun 22, 2020 13:39
[2020-06-22 16:00] VITALS: BP 125/66
--- NOTE | 2020-06-22 19:31 | NUR ---
NURSE HAND-OFF: Important Events on Shift: Patient Status: stable Diet: CCD Pending Orders: Pending Results/Labs: Pending MD notification: Latest Vital Signs: Temperature 97.5 , Pulse 66 , B/P 125 /66 , Respiratory Rate 16 , O2 SAT 98 , Room Air, O2 Flow Rate . Vital Sign Comment: Latest Del Angel Fall Score: 25 Fall Risk: Medium Risk Safety Measures: Call light Within Reach, Bed Alarm Zone 2, Side Rails Side Rails x2, Bed position Low and Locked. Fall Precautions: Patient Fall Education Report given to dariusz HERNANDEZ .
--- NOTE | 2020-06-22 19:47 | NUR ---
NURSE NOTES: Received patient ambulating in room, steady gait, no s/s of acute distress. IV access flushed, dressing reinforced, site asymptomatic. Bed low and locked, patient wearing non slip socks.
[2020-06-22 20:00] VITALS: BP 135/67
[2020-06-22] MEDS: QUEtiapine 200mg tab ORAL SCH (20:40)
[2020-06-22] MEDS: Atorvastatin 20mg tab ORAL SCH (20:41)
[2020-06-23] VITALS: BP 137/68
[2020-06-23] MEDS: LORazepam 1mg tab ORAL PRN ×2 (03:46→12:31)
[2020-06-23 04:00] VITALS: BP 141/70
[2020-06-23] MEDS: HYDROcodone/Acetamin 10/325 tab ORAL PRN (04:14)
[2020-06-23] MEDS: NovoLOG Insulin Flexpen SUBQ SCH ×2 (05:49→11:33)
--- NOTE | 2020-06-23 05:50 | NUR ---
TRANSFER TO FLOOR: Patient transferred to 4E per hospital isolation protocol. Report given to DAVID Arreguin . Patient transferred via hospital bed with primary RN and hemodialysis charge nurse. Belongings and medications sent with patient. IV access intact. Patient stable.
--- NOTE | 2020-06-23 06:00 | NUR ---
NURSE NOTES: Received report from DAVID Blanton, rPt transferred to [facility] from [facility] as he has active MRSA nares, hx CRE and Hx VRE rectum. Pt is awake and alert and oriented asking for his breakfast, ambulates with steady gate and wearing non skid socks. Pt is on room air, breathing unlabored, denies any pain at this time . Pt has a LT AC 20G saline locked , call light within reach , will continue to monitor
--- NOTE | 2020-06-23 07:43 | NUR ---
NURSE NOTES: Received report from DAVID Sandoval. Patient seen in bed AAOx4, ambulatory, on room air. Patient ambulates with steady gate and wearing non skid socks. Breathing is even and unlabored, patient denies SOB or pain at this time. RN instructed patient to use call light before ambulating if felt dizzy or weak. BEd is locked and placed in lowest position. Call light within reach. Will continue to monitor
--- NOTE | 2020-06-23 07:59 | NUR ---
NURSE HAND-OFF: Important Events on Shift: pt is hungry, wanted breakfast, just received pt from [facility] as he was now on isolation mrsa nares Patient Status: stable Diet: [facility] med Latest Vital Signs: Temperature 97.5 , Pulse 66 , B/P 125 /66 , Respiratory Rate 16 , O2 SAT 98 , Room Air, O2 Flow Rate . Vital Sign Comment: Latest Del Angel Fall Score: 25 Fall Risk: Medium Risk Safety Measures: Call light Within Reach, Bed Alarm Zone 2, Side Rails Side Rails x2, Bed position Low and Locked. Fall Precautions: Patient Fall Education Report given to DAVID Turner
[2020-06-23 08:00] VITALS: BP 129/72
[2020-06-23] MEDS: Levemir Flexpen SUBQ SCH (08:24)
[2020-06-23] MEDS: Metoprolol Tartrate 50mg tab ORAL SCH (08:28)
[2020-06-23] MEDS: Tamsulosin 0.4mg cap ORAL SCH (08:28)
[2020-06-23] MEDS: Lisinopril 20mg tab ORAL SCH (08:28)
[2020-06-23] MEDS: Aspirin EC 81mg tab ORAL SCH (08:29)
[2020-06-23] MEDS: ARIPiprazole 10mg tab ORAL SCH (09:33)
--- NOTE | 2020-06-23 09:48 | General Progress Note ---
Subjective Date patient seen: Jun 23, 2020 Time patient seen: 09:00 Allergies: Coded Allergies: PHENOTHIAZINES (Verified Allergy, Unknown, 02/06/10) Subjective anxious agitated, co chest tightness Objective Last 24 Hour Vital Signs Date Time Temp Pulse Resp B/P (MAP) Pulse Ox O2 Delivery O2 Flow Rate FiO2 06/23/20 09:00 Room Air 06/23/20 08:28 66 129/72 06/23/20 08:28 129/72 06/23/20 08:00 97.9 66 18 129/72 (91) 99 06/23/20 04:44 97.3 06/23/20 04:16 68 18 141/70 98 06/23/20 04:00 97.9 68 18 141/70 (93) 98 06/23/20 03:46 62 17 137/68 98 06/23/20 00:00 97.3 62 17 137/68 (91) 98 06/22/20 21:17 Room Air 06/22/20 20:40 75 135/67 06/22/20 20:28 97.5 06/22/20 20:00 97.7 75 16 135/67 (89) 98 06/22/20 16:25 66 16 125/66 98 06/22/20 16:00 97.5 66 16 125/66 (85) 98 06/22/20 15:55 65 18 135/66 98 06/22/20 11:45 98.1 65 18 138/67 (90) 100 Intake and Output 06/22/20 06/23/20 19:00 07:00 Intake Total 2400 ml 450 ml Balance 2400 ml 450 ml Intake Oral 2400 ml 450 ml # Voids 4 3 Laboratory Tests 06/22/20 11:33: POC Whole Blood Glucose 186H 06/22/20 15:58: POC Whole Blood Glucose 83 Height (Feet): 5 Height (Inches): 2.00 Weight (Pounds): 187 General Appearance: agitated EENT: PERRL/EOMI Neck: supple Cardiovascular: regular rhythm Respiratory/Chest: lungs clear Abdomen: soft Extremities: normal range of motion Skin: normal pigmentation Assessment/Plan Status: other - anxiety refusing to c psych Assessment/Plan: recurrent chest pain chf dm dizziness dm neuropathy anxiety getting worse flat foot thomas as out pt add ct of brain r/o cva ct brain is negative cont medical tc rpt tropnin cardio on consult [id number] Arthur Cabrera MD Jun 23, 2020 09:48
--- NOTE | 2020-06-23 10:38 | NUR ---
*-*DISCHARGE PLANNING-*-* PATIENT HAS BEEN REFERRED BACK TO: [facility] P: [phone]
[2020-06-23 12:00] VITALS: BP 136/68
--- NOTE | 2020-06-23 12:15 | NUR ---
NURSE NOTES: RN called and messaged Dr. Cabrera regarding discharge order for patient. RN made Dr. Cabrera aware that patients placement is ready and covid was negative
--- NOTE | 2020-06-23 12:16 | NUR ---
*-*DISCHARGE PLANNED*-* PATIENT HAS BEEN ACCEPTED AND WILL BE DISCHARGED TO: [facility] P: [phone] FOR NURSE REPORT ROOM# [facility] SET FOR 1:15PM/ 1315PM S/W LIS [id number].
--- NOTE | 2020-06-23 12:39 | NUR ---
*-*DISCHARGE PLANNED*-* PATIENT HAS BEEN ACCEPTED AND WILL BE DISCHARGED TO: [facility] P: [phone] FOR NURSE REPORT ROOM# 122 [facility] SET FOR WILL CALL [id number].
[2020-06-23 13:01] VITALS: BP 135/68
--- NOTE | 2020-06-23 13:08 | NUR ---
NURSE NOTES: RN called [facility] and spoke to DAVID Brown supervisor wet end. RN made Stephanie aware that patient is for D/c to their facility. Patient is AAOx4, ambulatory, on room air. D/c packet printed and ready for machine operator picker. belongings list signed
--- NOTE | 2020-06-23 13:25 | NUR ---
*-*DISCHARGE PLANNED*-* PATIENT HAS BEEN ACCEPTED AND WILL BE DISCHARGED TO: [facility] P: [phone] FOR NURSE REPORT ROOM# 122 [facility] SET FOR 2:15PM/ 1415PM S/W SKY [id number].
--- NOTE | 2020-06-23 13:35 | NUR ---
*-*DISCHARGE PLANNED*-* PATIENT HAS BEEN ACCEPTED AND WILL BE DISCHARGED TO: [facility] P: [phone] FOR NURSE REPORT ROOM# 122 [facility] SET FOR 3:15PM/ 1515PM S/W SKY [id number].
--- NOTE | 2020-06-23 15:38 | NUR ---
NURSE NOTES: Patient discharged in stable condition. RN gave report to [facility] personnel, patient signed belongings list. RN reminded ambulance personnel that patient has 2 cigarette lighters and should be given to the RN supervisor welding equipment repairer when taken to the SNF. IV site and arm band removed. Patient was then transferred to the [facility] and down to the ambulance safely
--- NOTE | 2020-06-24 12:54 | Discharge Summary ---
Discharge Summary Discharge Summary _ DATE OF ADMISSION: 06/19/2020 DATE OF DISCHARGE: 06/23/2020 DISCHARGED BY: Dr. Cabrera REASON FOR ADMISSION: 60 years old male, resident of [facility] facility, with past medical history of coronary artery disease, hypertension, COPD, diabetes mellitus, peripheral neuropathy, presented with left-sided chest pain and bilateral lower extremity swelling. Patient reported left-sided chest pain , ongoing for the past 24 hours and worse on exertion. Patient also reported that he experienced intermittent lower extremity swelling . Chest pain reported as pressure-like, located in the left side of the chest, without radiation. He denied fever and chills. He denied shortness of breath or cough. No abdominal pain, nausea, vomiting or diarrhea. No dysuria. Upon evaluation in ED laboratory work-up revealed no leukocytosis , hemoglobin 11.9, hematocrit 33.9. Stable electrolytes . BUN 22, creatinine 0.9. Troponin was negative. EKG revealed sinus rhythm no acute ischemic changes. Stable LFT . Chest x-ray demonstrated no acute cardiopulmonary pathology. In emergency department patient received aspirin , nebulizing treatment with albuterol and admitted for further management. Patient admitted for chest pain rule , possible acute coronary syndrome CONSULTANTS: vp treasurer Dr. Garrido [facility] COURSE: Patient admitted to telemetry floor. Office Messenger Helper followed. Serial troponin were negative. EKG revealed no acute ischemic changes. Patient was ruled out for acute myocardial infarction. Echocardiogram revealed preserved ejection fraction of 60%. No evidence of wall motion abnormality. Patient was on antiplatelet therapy with aspirin and beta-blockade. Statin continued. Blood pressure was managed with beta-[place] and DIPIKA inhibitor. DVT prophylaxis provided. According to vp treasurer patient had extensive ischemic work-up at [facility] in the past. At this time no further cardiovascular interventions were required. Office Messenger Helper recommended continue with aspirin , statin , and beta-[place]. Per vp treasurer, chest pain was likely noncardiac. Pain management was addressed. Neurontin dose was increased. Fall precaution maintained. Patient was working with physical therapist. Hemoglobin A1c 8.5. Diabetic diet and d diabetic teaching provided. Blood sugar was managed with long-acting Levemir and sliding scale of insulin as needed. Psych medication continued. Patient clinically stabilized and was ready for discharge. FINAL DIAGNOSES: Chest pain Possible ACS Hypertension Diabetes Diabetic neuropathy Obesity Depression Anxiety DISCHARGE MEDICATIONS: See Medication Reconciliation list. DISCHARGE INSTRUCTIONS: [facility] to the [facility] facility. Follow up with medical doctor at the facility. I have been assigned to dictate discharge summary for this account. I was not involved in the patient's management. Tamela Silva NP Jun 24, 2020 12:54
--- NOTE | 2020-06-24 16:17 | Cardiology Report ---
APPROVED REPORT EXAM: Two-dimensional and M-mode echocardiogram with Doppler and color Doppler. INDICATION Chest Pain M-Mode DIMENSIONS IVSd0.9 (0.7-1.1cm)Left Atrium (MM)3.4 (1.6-4.0cm) LVDd5.0 (3.5-5.6cm)Aortic Root3.7 (2.0-3.7cm) PWd0.7 (0.7-1.1cm)Aortic Cusp Exc.2.0 (1.5-2.0cm) IVSs1.7 cmEPSS1.0 (>1.0cm) LVDs2.1 (2.5-4.0cm) PWs2.1 cm <Conclusion> Normal left ventricular chamber size, systolic function and wall motion. Left ventricular ejection fraction estimated to be 65-70 %. No evidence of left ventricular hypertrophy. No evidence of pericardial effusion. All other cardiac chamber sizes are within normal limits. Focal aortic valve sclerosis with adequate cusp excursion. Thickened mitral valve leaflets with normal excursion. Mild mitral annulus and aortic root calcification. Pulmonic valve not well visualized. Normal tricuspid valve structure. IVC is normal in size with physiological collapse. A color flow and spectral Doppler study was performed and revealed: No aortic regurgitation. No mitral regurgitation. Mitral diastolic velocities suggest mild left ventricular diastolic dysfunction (Grade I). Trace tricuspid regurgitation. Tricuspid systolic velocities suggests peak right ventricular systolic pressure of 26 mmHg. Trace pulmonic regurgitation present.
--- NOTE | 2020-06-24 17:11 | Cardiology Report ---
APPROVED REPORT EKG Measurement Heart [id number] <Conclusion> Sinus bradycardia Otherwise normal ECG
--- NOTE | 2020-06-24 17:14 | Cardiology Report ---
APPROVED REPORT EKG Measurement Heart [id number] <Conclusion> Sinus bradycardia Otherwise normal ECG
== END 2020-06-23 15:38 | DRG 311 ==
LOC: EDBD 18:16 → EMR 18:39 → EDBEDREQ 19:18 → 2E 19:26 → EDBEDREQ 20:06 → 3E 06-21 16:25 → 4E 06-23 05:45
DX: I24.9 Acute ischemic heart disease, unspecified (principal); I50.30 Unspecified diastolic (congestive) heart failure; R07.9 Chest pain, unspecified; E11.40 Type 2 diabetes mellitus with diabetic neuropathy, unspecified; E11.65 Type 2 diabetes mellitus with hyperglycemia; I11.0 Hypertensive heart disease with heart failure; E66.9 Obesity, unspecified; Z68.34 Body mass index [BMI] 34.0-34.9, adult; F41.9 Anxiety disorder, unspecified; Z88.8 Allergy status to other drugs, medicaments and biological substances; Z79.82 Long term (current) use of aspirin; M79.672 Pain in left foot; M79.671 Pain in right foot; R26.81 Unsteadiness on feet; F32.9 Major depressive disorder, single episode, unspecified; I25.10 Atherosclerotic heart disease of native coronary artery without angina pectoris; J44.9 Chronic obstructive pulmonary disease, unspecified; Z79.4 Long term (current) use of insulin
CPT/HCPCS: 36415; 70470; 71045; 80053; 82962; 83036; 84484; 85025; 87081; 93005; 93306; 94640; 99285; J1815; J7620; S5561; U0002